=== PATIENT | female | born 1965 | race Caucasian/White ===

== ENCOUNTER 2016-12-11 09:00 | Outpatient (CLI) | payer BC ==
--- NOTE | 2016-12-11 10:17 | DIAGNOSTIC IMAGING REPORT ---
PROCEDURE: US ABDOMEN ULTRASOUND-LIMITED INDICATION: UPPER GASTRIC PAIN TECHNIQUE: Tirado scale and color Doppler sonographic images of the abdomen were obtained without comparison. COMPARISON: None. FINDINGS: The liver is normal in size, contour, and echotexture. No mass or intrahepatic biliary dilatation. The gallbladder is normal without stones or sludge. The wall is normal thickness measuring 1.8 mm No pericholecystic fluid or Godinez sign. The extrahepatic common duct is normal measuring 4.2 mm The visualized pancreas is normal without ductal dilatation or peripancreatic fluid collection. The abdominal aorta is normal in its course and caliber. The retrohepatic inferior vena cava is patent. There is appropriate hepatopetal flow in the portal vein. The right kidney measures 11.8 cm in length. There is no perihepatic or perisplenic ascites. IMPRESSION: 1. Normal abdominal ultrasound.
--- NOTE | 2016-12-11 11:25 | DIAGNOSTIC IMAGING REPORT ---
PROCEDURE: XR BARIUM SWALLOW INDICATION: UPPER GASTRIC PAIN, postprandial epigastric pain TECHNIQUE: Real time fluoroscopy was performed on the esophagus. Total fluoro time 1.8 minutes. Cumulative dose 2314.56 mGy. 127 saved fluoroscopic images including cine imaging and last image hold screen capture images. COMPARISON: None. FINDINGS: The swallowing mechanism is normal without aspiration. The esophagus is normal in course, contour, and caliber. Small hiatal hernia in the upright position. Hiatal hernia becomes small to moderate-sized in the recumbent position. The esophagus becomes somewhat patulous in the recumbent position and there is extensive gastroesophageal reflux to the level of the pharynx. In the semi prone position, there is decreased strength of secondary stripping wave, particularly in the distal esophagus. IMPRESSION: 1. There is significant gastroesophageal reflux in the recumbent position. 2. Small to moderate-sized hiatal hernia, enlarges in the recumbent position. 3. Decreased strength of secondary stripping wave.
== END 2016-12-11 23:00 | disposition home or self-care (01) ==
LOC: US SRH 09:00 → XR SRH 10:30 → US SRH 23:00
DX: R10.10 Upper abdominal pain, unspecified (principal); K21.9 Gastro-esophageal reflux disease without esophagitis; K44.9 Diaphragmatic hernia without obstruction or gangrene